=== PATIENT | male | born 1990 ===

== ENCOUNTER 2023-08-05 10:28 | Emergency (ER) | payer SELFPAY | END 2023-08-05 10:36 | disposition home or self-care (01) | LOC: ERS 10:28 | DX: R11.2 Nausea with vomiting, unspecified (principal); Z55.6 Problems related to health literacy | CPT/HCPCS: 99283 ==

== ENCOUNTER 2023-08-24 18:33 | Emergency (ER) | payer SELFPAY | END 2023-08-24 20:23 | disposition home or self-care (01) | LOC: ERS 18:33 | DX: R07.81 Pleurodynia (principal); X50.0XXA Overexertion from strenuous movement or load, initial encounter; Y93.F2 Activity, caregiving, lifting; Y92.69 Other specified industrial and construction area as the place of occurrence of the external cause; Z55.6 Problems related to health literacy | CPT/HCPCS: 71045 ==